=== PATIENT | female | born 1945 | race Two or more races ===

== ENCOUNTER 2018-07-10 08:14 | Emergency (ER) | payer OTHER ==
[~2018-07-10] VITALS: Ht 152.4 cm; Wt 60.3 kg
[2018-07-10] MEDS ORDERED: GLUMETZA500 MG PO (08:32)
[2018-07-10] MEDS ORDERED: COZAAR100 MG PO (08:32)
[2018-07-10] MEDS ORDERED: JANUVIA100 MG (08:33)
[2018-07-10] MEDS ORDERED: [UNRECOGNIZED DRUG - OTHER] PO (08:33)
[2018-07-10] MEDS ORDERED: SYNTHROID88 MCG PO (08:33)
== END 2018-07-10 16:02 | disposition home or self-care (01) ==
LOC: ER
DX: K52.9 Noninfective gastroenteritis and colitis, unspecified (principal)

== ENCOUNTER → 2018-12-05 | Emergency (ER) | payer OTHER ==
[~2018-12-05] VITALS: Ht 154.9 cm; Wt 54.4 kg
[~2018-12-05] MED LIST: COZAAR100 MG PO; GLUMETZA500 MG PO; JANUVIA100 MG; SYNTHROID88 MCG PO; [UNRECOGNIZED DRUG - OTHER] PO
== END | disposition home or self-care (01) ==
LOC: ER 22:44
DX: T50.Z95A Adverse effect of other vaccines and biological substances, initial encounter (principal); L03.114 Cellulitis of left upper limb

== ENCOUNTER 2022-10-18 19:55 | Emergency (ER) | payer OTHER ==
[~2022-10-18] VITALS: Ht 152.4 cm; Wt 56.2 kg
== END 2022-10-18 22:38 | disposition home or self-care (01) ==
LOC: ER 19:55
DX: S09.8XXA Other specified injuries of head, initial encounter (principal); W19.XXXA Unspecified fall, initial encounter; Y93.79 Activity, other specified sports and athletics; Y92.89 Other specified places as the place of occurrence of the external cause; Z91.013 Allergy to seafood; Z88.6 Allergy status to analgesic agent; Z88.2 Allergy status to sulfonamides; S29.8XXA Other specified injuries of thorax, initial encounter

== ENCOUNTER 2024-03-19 12:06 | Emergency (ER) | payer OTHER ==
[~2024-03-19] VITALS: Ht 152.4 cm; Wt 58.1 kg
[2024-03-19] MEDS ORDERED: FAMOtidine 10 MG/ML (4ML VIAL) IV ONE (12:45)
[2024-03-19] MEDS ORDERED: GUAIFENESIN 200 MG/10 ML BLIST.PACK PO ONE (12:45)
[2024-03-19] MEDS ORDERED: ACETAMINOPHEN 325 MG TABLET PO ONE (12:45)
[2024-03-19 13:45] LABS: HEMATOCRIT 34.3 % (36.0-45.00); HEMOGLOBIN 11.7 g/dL (12.0-15.00); MEAN CELL VOLUME 90.3 fL (80.00-100.00); MEAN CORPUSCULAR HEMOGLOBIN 30.9 pg (27.00-32.0); MEAN CORPUSCULAR HGB CONC 34.3 g/dl (32.0-36.0); PLATELET COUNT 264 K/uL (150-450); RED BLOOD COUNT 3.79 M/uL (4.00-6.00); RED CELL DISTRIBUTION WIDTH 13.2 % (11.5-14.5)
[2024-03-19 14:24] LABS: BILIRUBIN TOTAL 0.51 mg/dL (0.3-1.2); CALCIUM 9.4 mg/dL (8.5-10.1); CREATININE SERUM 0.7 mg/dL (0.55-1.02); GFR 81.14; GLOBULINA 3.4 G/DL (2.4-3.5); POTASSIUM 3.82 mEq/L (3.5-5.1); TOTAL PROTEIN 7.4 gm/dL (6.4-8.2)
== END 2024-03-19 14:42 | disposition home or self-care (01) ==
LOC: ER 12:08
PROVIDERS: General Practice
DX: R51.9 Headache, unspecified (principal); R07.89 Other chest pain; Z20.822 Contact with and (suspected) exposure to COVID-19; I10 Essential (primary) hypertension; E11.9 Type 2 diabetes mellitus without complications; Z79.84 Long term (current) use of oral hypoglycemic drugs; Z88.2 Allergy status to sulfonamides; Z91.013 Allergy to seafood
CPT/HCPCS: 36415; 71046; 96365; 99283; J3490

== ENCOUNTER 2024-07-17 20:40 | Inpatient (IN) | payer OTHER ==
[~2024-07-17] VITALS: Ht 154.9 cm; Wt 68.0 kg
[2024-07-17] MEDS ORDERED: DULOXETINE HCL40 MG PO (21:07)
[2024-07-17] MEDS ORDERED: AMLODIPINE-OLM1 EAC2 PO (21:08)
--- NOTE | 2024-07-17 21:09 | NUR ---
SE RECIBE PACIENTE ALERTA Y ORIENTADA X3 LA CUAL REFIERE VENIR A CAUSA DE QUE BRUCE ESTADO PRESENTANDO SINTOMAS DE DOLOR ABDOMINAL Y PROBLEMAS PARA EVACUAR DESDE HACE 6 ESPITIA. SE MIDEN S/V Y SE UBICA.
[2024-07-18] MEDS ORDERED: METOCLOPRAMIDE HCL 5 MG/ML VIAL IM STA (00:15)
[2024-07-18] MEDS ORDERED: MEPERIDINE HCL/PF 25 MG/ML VIAL IM STA (00:16)
[2024-07-18] MEDS ORDERED: PROMETHAZINE HCL 25 MG/ML AMPUL IM STA (00:17)
[2024-07-18] MEDS ORDERED: 0.9 % SODIUM CHLORIDE 1,000 ML IV STA (00:19)
[2024-07-18] MEDS ORDERED: FAMOtidine 10 MG/ML (4ML VIAL) IV PUSH STA (00:20)
[2024-07-18] MEDS ORDERED: METOCLOPRAMIDE HCL 5 MG/ML VIAL ONE (00:27)
[2024-07-18] MEDS ORDERED: FAMOTIDINE/PF 20 MG/2 ML VIAL ONE ×2 (00:27→18:28)
[2024-07-18] MEDS ORDERED: PROMETHAZINE HCL 25 MG/ML AMPUL ONE (00:27)
[2024-07-18 01:06] LABS: HEMATOCRIT 31.7 % (36.0-45.00); MEAN CELL VOLUME 89.1 fL (80.00-100.00); MEAN CORPUSCULAR HGB CONC 34.8 g/dl (32.0-36.0); PLATELET COUNT 245 K/uL (150-450); RED BLOOD COUNT 3.56 M/uL (4.00-6.00); RED CELL DISTRIBUTION WIDTH 13.2 % (11.5-14.5)
[2024-07-18 01:26] LABS: INR 1.07; PARTIAL THROMBOPLASTIN TIME 33.5 SECONDS (22.0-34.0); PROTHROMBIN TIME 11.6 SECONDS (9.0-11.5)
[2024-07-18 01:56] LABS: ALBUMIN 3.5 gm/dL (3.4-5.0); BILIRUBIN TOTAL 0.79 mg/dL (0.3-1.2); CREATININE SERUM 0.66 mg/dL (0.55-1.02); GFR 86.84; GLOBULINA 4.2 G/DL (2.4-3.5); POTASSIUM 3.71 mEq/L (3.5-5.1); TOTAL PROTEIN 7.7 gm/dL (6.4-8.2)
[2024-07-18] MEDS ORDERED: METRONIDAZOLE/SODIUM CHLORIDE 500 MG/100 ML PIGGYBACK IV STA (02:46)
[2024-07-18] MEDS ORDERED: METRONIDAZOLE/SODIUM CHLORIDE 500 MG/100 ML PIGGYBACK IV ONE (02:49)
[2024-07-18 05:23] LABS: URINE APPEARANCE Clear; URINE BILIRRUBIN Negative (NEGATIVE); URINE BLOOD Negative; URINE COLOR Yellow; URINE GLUCOSE Negative (NEGATIVE); URINE KETONE Trace (NEGATIVE); URINE LEUKOCYTE Moderate; URINE NITRATE Positive; URINE PROTEIN Negative (NEGATIVE); URINE UROBILINOGEN 0.2 E.U./dl
[2024-07-18 05:26] LABS: URINE EPITHELIAL CELLS 16.4 uL (0.0-38.8); URINE RBC 6.1 uL (0.0-20.8); URINE WBC 265.1 uL (0.0-23.2)
[2024-07-18 05:46] LABS: URINE BACTERIA > 9821.5 uL (0.0-1933); URINE CAST 0.29 uL (0.0-1.40)
[2024-07-18] MEDS ORDERED: KETOROLAC TROMETHAMINE 30 MG VIAL IV ONE (08:45)
[2024-07-18] MEDS ORDERED: KETOROLAC TROMETHAMINE 30 MG VIAL ONE (08:46)
[2024-07-18] MEDS ORDERED: FAMOTIDINE/PF 20 MG in 0.9 % SODIUM CHLORIDE 8 ML IV PUSH SCH (17:41)
[2024-07-18] MEDS ORDERED: METRONIDAZOLE/SODIUM CHLORIDE 100 ML IV SCH (17:42)
[2024-07-18] MEDS ORDERED: HYOSCYAMINE SULFATE 0.125 MG TAB.SUBL PO ONE (17:45)
[2024-07-18] MEDS ORDERED: INSULIN LISPRO 1,000 UNIT/10 ML UNITS SUBCUTANEO PRN (17:45)
[2024-07-18] MEDS ORDERED: DOCUSATE CALCIUM 240 MG CAPSULE PO ONE (17:45)
[2024-07-18] MEDS ORDERED: ACETAMINOPHEN 500 MG GEL..CAP PO PRN (17:45)
[2024-07-18] MEDS ORDERED: ONDANSETRON HCL 4 MG in 0.9 % SODIUM CHLORIDE 50 ML IV PRN (17:45)
[2024-07-18] MEDS ORDERED: 0.9 % SODIUM CHLORIDE 1,000 ML IV SCH (17:45)
[2024-07-18] MEDS ORDERED: DEXTROSE 50 % IN WATER 0.5 G/ML DISP.SYRIN IV PRN (17:45)
[2024-07-18] MEDS ORDERED: HYOSCYAMINE SULFATE 0.125 MG TAB.SUBL ONE (18:28)
[2024-07-18 21:00] VITALS: BP 169/64; O2SAT 97
[2024-07-18] MEDS ORDERED: CIPROFLOXACIN IN 5 % DEXTROSE 200 ML IV SCH (21:00)
[2024-07-19 02:00] VITALS: BP 122/60
[2024-07-19] MEDS ORDERED: LEVOTHYROXINE SODIUM 88 MCG TABLET PO SCH (06:00)
[2024-07-19 08:02] VITALS: BP 125/51
[2024-07-19] MEDS ORDERED: LOSARTAN POTASSIUM 100 MG TABLET PO SCH (09:00)
[2024-07-19] MEDS ORDERED: Duloxetine HCl 30 MG CAPSULE.DR PO SCH (09:00)
[2024-07-19] MEDS ORDERED: ENOXAPARIN SODIUM 40 MG/0.4 ML SYRINGE SUBCUTANEO SCH (09:00)
[2024-07-19] MEDS ORDERED: AMLODIPINE BESYLATE 5 MG TABLET PO SCH (09:00)
[2024-07-19] MEDS ORDERED: SERTRALINE HCL 50 MG TABLET PO NR (14:00)
[2024-07-19] MEDS ORDERED: SIMVASTATIN 20 MG TABLET PO SCH (17:00)
[2024-07-19 17:35] VITALS: BP 128/64; O2SAT 99
[2024-07-20 02:11] VITALS: BP 119/52
[2024-07-20] MEDS ORDERED: CEFTRIAXONE SODIUM 2,000 MG VIAL IV SCH (09:00)
[2024-07-20] MEDS ORDERED: SERTRALINE HCL 50 MG TABLET PO SCH (09:00)
[2024-07-20 09:02] VITALS: BP 148/66
[2024-07-20] MEDS ORDERED: INSULIN LISPRO 1,000 UNIT/10 ML UNITS SUBCUTANEO PRN (10:30)
[2024-07-20] MEDS ORDERED: POLYETHYLENE GLYCOL 3350 17 GM BLIST.PACK PO STA (10:43)
[2024-07-20 16:31] VITALS: BP 157/70; O2SAT 100
[2024-07-21] VITALS: BP 131/69; O2SAT 99
[2024-07-21 06:11] LABS: HEMATOCRIT 34.2 % (36.0-45.00); HEMOGLOBIN 11.8 g/dL (12.0-15.00); MEAN CELL VOLUME 89.3 fL (80.00-100.00); MEAN CORPUSCULAR HEMOGLOBIN 30.8 pg (27.00-32.0); MEAN CORPUSCULAR HGB CONC 34.5 g/dl (32.0-36.0); PLATELET COUNT 303 K/uL (150-450); RED BLOOD COUNT 3.83 M/uL (4.00-6.00)
[2024-07-21 06:54] LABS: ALBUMIN 3.8 gm/dL (3.4-5.0); BILIRUBIN TOTAL 0.51 mg/dL (0.3-1.2); CALCIUM 8.9 mg/dL (8.5-10.1); CREATININE SERUM 0.52 mg/dL (0.55-1.02); GFR 114.34; GLOBULINA 3.6 G/DL (2.4-3.5); POTASSIUM 3.14 mEq/L (3.5-5.1); TOTAL PROTEIN 7.4 gm/dL (6.4-8.2)
[2024-07-21] MEDS ORDERED: FAMOTIDINE/PF 20 MG/2 ML VIAL ONE (07:42)
[2024-07-21] MEDS ORDERED: POTASSIUM CHLORIDE 20MEQ/100ML H2O PB IV NR (08:00)
[2024-07-21 09:44] VITALS: BP 133/69; O2SAT 99
[2024-07-21 17:22] VITALS: BP 154/72; O2SAT 100
[2024-07-22 02:55] VITALS: BP 125/55; O2SAT 97
[2024-07-22] MEDS ORDERED: FAMOTIDINE/PF 20 MG/2 ML VIAL ONE (08:04)
[2024-07-22 08:39] VITALS: BP 122/68
== END 2024-07-22 10:56 | disposition home or self-care (01) | DRG 392 ==
LOC: ER 20:43 → MEDI 07-18 18:15
PROVIDERS: Internal Medicine Infectious Disease; ADMIT Internal Medicine; ATTEND Internal Medicine
PROC: BW21ZZZ Computerized Tomography (CT Scan) of Abdomen and Pelvis (ICD-10-PCS; principal; 2024-07-18)
DX: K57.32 Diverticulitis of large intestine without perforation or abscess without bleeding (principal); N39.0 Urinary tract infection, site not specified; R65.10 Systemic inflammatory response syndrome (SIRS) of non-infectious origin without acute organ dysfunction; K52.9 Noninfective gastroenteritis and colitis, unspecified

== ENCOUNTER 2024-12-20 17:48 | Emergency (ER) | payer OTHER ==
[~2024-12-20] VITALS: Ht 152.4 cm; Wt 56.7 kg
[~2024-12-20 17:48] MED LIST changes: +AMLODIPINE-OLM1 EAC2 PO; +DULOXETINE HCL40 MG PO
[2024-12-20] MEDS ORDERED: CYMBALTA60 MG PO (18:10)
[2024-12-20] MEDS ORDERED: 0.9 % SODIUM CHLORIDE 1,000 ML IV STA (20:13)
[2024-12-20] MEDS ORDERED: PIPERACILLIN/TAZOBACTAM SODIUM 3.375 GM VIAL IV STA (20:14)
[2024-12-20] MEDS ORDERED: MORPHINE SULFATE 4 MG/ML VIAL IV STA (20:14)
[2024-12-20 21:05] LABS: BASO % 0.7 % (0.1-1.2); EOS # 0.17 (0.04-0.54); EOS % 1.4 % (0.7-7.0); LYMPH # 4.06 (1.18-3.74); LYMPH % 33.3 % (19.3-53.1); MEAN PLATELET VOLUME 10.70 fl (9.4-12.4); MONO # 0.58 (0.24-0.82); MONO % 4.8 % (4.7-12.5); NEUT # 7.22 (1.56-6.13); NEUT % 59.2 % (34.0-71.1); RED CELL DISTRIBUTION WIDTH 12.1 % (11.6-14.4)
[2024-12-20 21:31] LABS: INR 1.00
[2024-12-20 21:41] LABS: ALT/SGPT 27.0 U/L (12-78); AST/SGOT 24.0 U/L (15-37); BILIRUBIN TOTAL 0.59 mg/dL (0.3-1.2); BUN CREA RATIO 30.0 (7.0-25.0); CREATININE SERUM 0.71 mg/dL (0.55-1.02); GFR 79.61; GLOBULINA 4.8 G/DL (2.4-3.5); GLUCOSE FASTING 131.0 mg/dL (65-100); OSMOLALITY SERUM 288.0 MOSM/KG (275-295)
[2024-12-20 21:57] LABS: URINE APPEARANCE Clear; URINE BILIRRUBIN Negative (NEGATIVE); URINE BLOOD Negative; URINE COLOR Yellow; URINE GLUCOSE Negative (NEGATIVE); URINE KETONE Negative (NEGATIVE); URINE LEUKOCYTE Small; URINE NITRATE Negative; URINE PROTEIN Negative (NEGATIVE); URINE UROBILINOGEN 0.2 E.U./dl
[2024-12-20 22:01] LABS: URINE BACTERIA 163.1 uL (0.0-1933); URINE EPITHELIAL CELLS 7.2 uL (0.0-38.8); URINE RBC 4.9 uL (0.0-20.8); URINE WBC 16.7 uL (0.0-23.2)
[2024-12-20 22:03] LABS: URINE CAST 0.58 uL (0.0-1.40)
[2024-12-20] MEDS ORDERED: CIPRO500 MG PO (23:10)
[2024-12-20] MEDS ORDERED: METRONIDAZOLE500 MG PO (23:11)
[2024-12-20] MEDS ORDERED: PROTONIX40 MG PO (23:11)
[2024-12-20] MEDS ORDERED: INTESTINEX680 M1 PO (23:11)
== END 2024-12-20 23:34 | disposition home or self-care (01) ==
LOC: ER 17:51
DX: K57.92 Diverticulitis of intestine, part unspecified, without perforation or abscess without bleeding (principal); R10.32 Left lower quadrant pain; K57.32 Diverticulitis of large intestine without perforation or abscess without bleeding; Z88.2 Allergy status to sulfonamides; Z91.013 Allergy to seafood
CPT/HCPCS: 36415; 74176; 96365; 96366; 99284; J2270; J2543; J7030

== ENCOUNTER 2025-03-15 12:57 | Emergency (ER) | payer OTHER ==
[~2025-03-15] VITALS: Ht 152.4 cm; Wt 56.2 kg
[~2025-03-15 12:57] MED LIST changes: +CIPRO500 MG PO; +CYMBALTA60 MG PO; +INTESTINEX680 M1 PO; +METRONIDAZOLE500 MG PO; +PROTONIX40 MG PO
[2025-03-15] MEDS ORDERED: BENZONATATE 100 MG CAPSULE PO ONE (15:00)
[2025-03-15] MEDS ORDERED: ACETAMINOPHEN 500 MG GEL..CAP PO ONE ×3 (15:00→16:40)
[2025-03-15 17:03] LABS: BASO % 0.6 % (0.1-1.2); EOS # 0.12 (0.04-0.54); EOS % 1.2 % (0.7-7.0); LYMPH # 2.64 (1.18-3.74); LYMPH % 27.0 % (19.3-53.1); MEAN PLATELET VOLUME 11.00 fl (9.4-12.4); MONO # 0.43 (0.24-0.82); MONO % 4.4 % (4.7-12.5); NEUT # 6.44 (1.56-6.13); NEUT % 66.1 % (34.0-71.1); RED CELL DISTRIBUTION WIDTH 12.2 % (11.6-14.4)
[2025-03-15 17:47] LABS: ALT/SGPT 23.0 U/L (12-78); AST/SGOT 16.0 U/L (15-37); BILIRUBIN TOTAL 0.53 mg/dL (0.3-1.2); BUN CREA RATIO 24.0 (7.0-25.0); CREATININE SERUM 0.79 mg/dL (0.55-1.02); GFR 70.38; GLOBULINA 3.9 G/DL (2.4-3.5); GLUCOSE FASTING 171.0 mg/dL (65-100); OSMOLALITY SERUM 288.0 MOSM/KG (275-295)
[2025-03-15 18:10] LABS: COVID-19 AG NEGATIVE (NEGATIVE)
[2025-03-15] MEDS ORDERED: BENZONATATE200 M1 PO (19:30)
[2025-03-15] MEDS ORDERED: CETIRIZINE HCL 5MG/5ML BLIST.PACK PO ONE (22:56)
[2025-03-15] MEDS ORDERED: GUAIFENESIN/DEXTROMETHORPHAN 100MG/10ML BLIST.PACK PO ONE (22:57)
== END 2025-03-15 23:13 ==
LOC: ER 12:58
PROVIDERS: General Practice
DX: R07.89 Other chest pain (principal); J00 Acute nasopharyngitis [common cold]; Z20.822 Contact with and (suspected) exposure to COVID-19; E11.9 Type 2 diabetes mellitus without complications; Z79.84 Long term (current) use of oral hypoglycemic drugs; I10 Essential (primary) hypertension; E03.9 Hypothyroidism, unspecified; Z91.013 Allergy to seafood; Z88.2 Allergy status to sulfonamides; Z85.3 Personal history of malignant neoplasm of breast